=== PATIENT | male | born 1995 | race Caucasian/White ===

== ENCOUNTER 2022-06-11 08:01 | Emergency (ER) | payer MEDICAID ==
[2022-06-11 09:40] LABS: ESTIMATED GFR 94 mL/min (>60)
[2022-06-14 07:08] LABS: EBV AB VCA, IGM <36.0 U/mL (0.0-35.9)
== END 2022-06-11 10:17 | disposition home or self-care (01) ==
LOC: JP.ED 08:01
DX: R59.9 Enlarged lymph nodes, unspecified (principal); J45.909 Unspecified asthma, uncomplicated; I10 Essential (primary) hypertension; F17.210 Nicotine dependence, cigarettes, uncomplicated; Z88.0 Allergy status to penicillin
CPT/HCPCS: 36415; 80053; 83605; 85025; 86140; 86665; 99283

== ENCOUNTER 2022-09-09 11:59 | Emergency (ER) | payer MEDICAID | END 2022-09-09 13:24 | disposition home or self-care (01) | LOC: JP.ED 11:59 | DX: S59.911A Unspecified injury of right forearm, initial encounter (principal); I10 Essential (primary) hypertension; Z88.0 Allergy status to penicillin; X50.0XXA Overexertion from strenuous movement or load, initial encounter | CPT/HCPCS: 99283 ==